=== PATIENT | female | born 1955 | race African-American/Black ===

== ENCOUNTER 2021-11-03 13:19 | Emergency (ER) | payer MEDICARE, OTHER ==
[~2021-11-03] VITALS: Ht 170.2 cm; Wt 68.0 kg
[2021-11-03 14:06] LABS: BASOPHILS % 0.8 % (0.0-2.0); EOSINOPHILS % 0.6 % (0.0-5.0); HEMATOCRIT. 39.4 % (36.0-48.0); LYMPHOCYTES % 20.6 % (20.0-50.0); MEAN CORPUSCULAR HEMOGLOBIN 27.1 pg (28.0-32.0); MEAN CORPUSCULAR VOLUME 81.8 fL (81.0-99.0); MEAN PLATELET VOLUME 9.2 fl (7.4-10.4); MONOCYTES % 8.4 % (2.0-8.0); NEUTROPHILS % 69.6 % (40.0-76.0); PLATELET 302 x1000/uL (130-400); RED BLOOD CELL COUNT 4.81 mill/uL (4.2-5.4); RED CELL DISTRIBUTION WIDTH 14.1 % (11.6-14.6)
[2021-11-03 14:12] LABS: CHLORIDE 111 mEq/L (98-107)
[2021-11-03] MEDS ORDERED: OLANZAPINE 10 MG/VIAL IM ONE (14:15)
[2021-11-03] MEDS ORDERED: LORAZEPAM 2MG/ML CPJ IM ONE (14:15)
[2021-11-03 14:17] LABS: ETHANOL BLOOD < 10 mg/dL
[2021-11-03 15:55] LABS: CLARITY URINE CLEAR (CLEAR); COLOR URINE YELLOW (YELLOW); KETONES URINE TRACE (NEGATIVE); LEUKOCYTE ESTERASE URINE TRACE (NEGATIVE); NITRITE URINE NEGATIVE (NEGATIVE); OCCULT BLOOD URINE TRACE (NEGATIVE); PROTEIN URINE 2+ (NEGATIVE); SPECIFIC GRAVITY URINE 1.015 (1.005-1.030)
[2021-11-03 16:08] LABS: *AMPHETAMINES SCREEN URINE NEGATIVE (NEGATIVE); *BARBITURATES SCREEN URINE NEGATIVE (NEGATIVE)
[2021-11-03 16:09] LABS: *BENZODIAZEPINES SCREEN URINE NEGATIVE (NEGATIVE); *COCAINE SCREEN URINE PRESUMTIVE POSITIVE (NEGATIVE); METHADONE URINE SCREEN NEGATIVE (NEGATIVE); OPIATES URINE SCREEN NEGATIVE (NEGATIVE); PHENCYCLIDINE URINE SCREEN NEGATIVE (NEGATIVE)
[2021-11-03 16:10] LABS: CANNABINOID URINE SCREEN NEGATIVE (NEGATIVE)
[2021-11-03] MEDS ORDERED: CEFTRIAXONE SODIUM 1 G/VIAL IM ONE (16:15)
[2021-11-03] MEDS ORDERED: CEFP200T13 MT (20:07)
[2021-11-04] MEDS: OLANZAPINE 2.5MG TABLET PO SCH (12:31)
[2021-11-05] MEDS: OLANZAPINE 2.5MG TABLET PO SCH (09:00)
[2021-11-06] MEDS: OLANZAPINE 2.5MG TABLET PO SCH ×2 (08:17→17:00)
[2021-11-07] MEDS: OLANZAPINE 2.5MG TABLET PO SCH ×2 (09:00→17:17)
[2021-11-07] MEDS ORDERED: IBUPROFEN 400MG TABLET PO ONE (11:00)
[2021-11-08] MEDS: OLANZAPINE 2.5MG TABLET PO SCH ×2 (09:27→17:00)
[2021-11-08 14:45] VITALS: BP 147/76
== END 2021-11-08 17:42 | disposition home or self-care (01) ==
LOC: ER 13:43
DX: U07.1 COVID-19 (principal); N39.0 Urinary tract infection, site not specified; F99 Mental disorder, not otherwise specified; Z98.890 Other specified postprocedural states
CPT/HCPCS: 36415; 80053; 80305; 80307; 80320; 80329; 81003; 84443; 85025; 96372; 99285; C9803; J0696; J2060; J3490; U0003; U0005; G0480

== ENCOUNTER 2023-12-13 12:38 | Emergency (ER) | payer MEDICARE, OTHER ==
[~2023-12-13] VITALS: Ht 170.2 cm; Wt 73.0 kg
[~2023-12-13 12:38] MED LIST: CEFP200T13 MT
[2023-12-13 12:55] VITALS: TEMP 98.7; O2SAT 100
[2023-12-13] MEDS ORDERED: LORAZEPAM 2MG/ML INJ IV ONE (14:15)
[2023-12-13 14:20] LABS: BASOPHILS % 1.1 % (0.0-2.0); EOSINOPHILS % 3.7 % (0.0-5.0); HEMATOCRIT. 39.3 % (36.0-48.0); HEMOGLOBIN. 13.1 g/dL (12.0-16.0); MEAN CORPUSCULAR HEMOGLOBIN 27.9 pg (28.0-32.0); MEAN CORPUSCULAR HGB CONC 33.3 g/dL (31.0-37.0); MEAN CORPUSCULAR VOLUME 83.7 fL (81.0-99.0); MEAN PLATELET VOLUME 9.5 fl (7.4-10.4); MONOCYTES % 8.4 % (2.0-8.0); NEUTROPHILS % 51.8 % (40.0-76.0); PLATELET 257 x1000/uL (130-400); RED BLOOD CELL COUNT 4.69 mill/uL (4.2-5.4); RED CELL DISTRIBUTION WIDTH 14.7 % (11.6-14.6); WHITE BLOOD COUNT 5.1 x1000/uL (4.5-11.0)
[2023-12-13] MEDS: LORAZEPAM 0.5MG TABLET PO ONE (14:27)
[2023-12-13 14:28] LABS: CARBON DIOXIDE 27 mEq/L (21-32); CHLORIDE 114 mEq/L (98-107); POTASSIUM 3.9 mEq/L (3.5-5.1); SODIUM 144 mEq/L (136-145)
[2023-12-13 14:29] LABS: CALCIUM 12.5 mg/dL (8.7-10.4)
[2023-12-13 14:33] LABS: CREATININE 1.4 mg/dL (0.6-1.0); GLUCOSE 95 mg/dL (70-105)
[2023-12-13 14:34] LABS: UREA NITROGEN BLOOD 24 mg/dL (9-23)
[2023-12-13 14:35] LABS: ALANINE AMINOTRANSFERASE 18 IU/L (10-49); ALBUMIN 4.4 g/dL (3.2-4.8); ASPARTATE AMINOTRANSFERASE 24 IU/L (<34)
[2023-12-13 14:36] LABS: BILIRUBIN DIRECT 0.2 mg/dL (<=3.0); BILIRUBIN TOTAL 0.6 mg/dL (0.1-1.0); PROTEIN TOTAL 7.2 g/dL (6.0-8.3)
[2023-12-13 15:15] LABS: TROPONIN I HIGH SENSITIVITY 133 ng/L (3.0-34)
[2023-12-13] MEDS: ASPIRIN 325MG TABLET PO STA (18:06)
[2023-12-13 18:55] LABS: TROPONIN I HIGH SENSITIVITY 132 ng/L (3.0-34)
[2023-12-13 20:00] VITALS: BP 180/97; PULSE 70; RESP 18
[2023-12-13] MEDS: HYDRALAZINE 20MG/ML VIAL IV ONE (20:50)
== END 2023-12-13 21:01 | disposition short-term general hospital (02) ==
LOC: ER 12:38 → CANBEDREQ 18:01 → ER 21:01
DX: R79.89 Other specified abnormal findings of blood chemistry (principal); F14.90 Cocaine use, unspecified, uncomplicated; I10 Essential (primary) hypertension
CPT/HCPCS: 80076; 80048; 85025; 84484; 36415; 71045; 70450; 93005; 96374; 99291; J0360; Z7610